=== PATIENT | male | born 1980 | race Caucasian/White ===

== ENCOUNTER 2023-03-06 10:18 | Emergency (ER) | payer OTHER ==
[~2023-03-06] VITALS: Ht 162.6 cm; Wt 59.1 kg
[2023-03-06] MEDS ORDERED: IBUPROFEN 600 MG TABLET PO ONE (13:15)
[2023-03-06] MEDS ORDERED: ACETAMINOPHEN 325 MG TABLET PO ONE (13:15)
[2023-03-06 14:45] VITALS: BP 131/72
== END 2023-03-06 15:14 | disposition home or self-care (01) ==
LOC: EMS 10:24
DX: S16.1XXA Strain of muscle, fascia and tendon at neck level, initial encounter (principal); V89.2XXA Person injured in unspecified motor-vehicle accident, traffic, initial encounter; Y93.89 Activity, other specified; Y92.89 Other specified places as the place of occurrence of the external cause; Y99.8 Other external cause status
CPT/HCPCS: 99283